=== PATIENT | male | born 1950 | race Caucasian/White ===

== ENCOUNTER 2021-09-12 10:07 | Emergency (ER) | payer OTHER ==
[~2021-09-12] VITALS: Ht 182.9 cm; Wt 87.1 kg
--- NOTE | 2021-09-12 10:10 | NUR ---
[id number] FOUND BY NIECE ON FLOOR. DENIES ANY PAIN, BRUISING ON LT ARM PT STS ON FLOOR SINCE 8P LAST NIGHT, WEAK TO GET UP. SKIN PALE. BG 133. ATTCHED TO MONITOR. VITALS ARE WITHIN NORMAL LIMITS. AWAITED MD STEPHENSON.
[2021-09-12] MEDS ORDERED: IV NS 0.9% 1,000 ML BAG IV ONE (10:30)
--- NOTE | 2021-09-12 10:47 | NUR ---
COVID TEST COLLECTED AND SENT
[2021-09-12] MEDS ORDERED: METF-440 PO (11:05)
[2021-09-12] MEDS ORDERED: LISI2.5T2 PO (11:05)
--- NOTE | 2021-09-12 11:05 | NUR ---
[employer] AT BEDSIDE FOR XRAY
[2021-09-12 11:24] LABS: BASOPHILS % (AUTO) 0.3 % (0.0-2.0); HEMATOCRIT 39 % (39-51); HEMOGLOBIN 12.9 g/dL (13.5-17.5); LYMPHOCYTES # (AUTO) 0.5 K/uL (0.8-4.8); LYMPHOCYTES % (AUTO) 6.9 % (20.0-44.0); MEAN CORPUSCULAR HGB CONC 33 g/dl (31.0-36.0); MEAN CORPUSCULAR VOLUME 86 fL (80-96); MONOCYTES # (AUTO) 1.4 K/uL (0.1-1.30); MONOCYTES % (AUTO) 20.4 % (2.0-12.0); NEUTROPHILS # (AUTO) 4.9 K/uL (1.8-8.9); NEUTROPHILS % (AUTO) 72.4 % (43.0-81.0); PLATELET COUNT (AUTO) 176 K/uL (150-450); RED BLOOD CELL COUNT(AUTO) 4.53 MIL/uL (4.5-6.0); WHITE BLOOD COUNT (AUTO) 6.7 K/uL (4.3-11.0)
[2021-09-12 11:53] LABS: LYMPHOCYTES % (MANUAL) 6 % (16-48); MONOCYTES % (MANUAL) 10 % (0-11.0); NEUTROPHILS % (MANUAL) 84 (42-76)
--- NOTE | 2021-09-12 12:30 | NUR ---
MOVE SHEET SUBMITTED.
[2021-09-12 12:55] LABS: CALCIUM, SERUM 9.8 mg/dL (8.5-10.1); CARBON DIOXIDE 21 mmol/L (21-32); CHLORIDE 103 mmol/L (98-107); CREATININE 0.8 mg/dL (0.6-1.3); GLUCOSE 115 mg/dL (74-106); SODIUM SERUM 134 mmol/L (136-145); UREA NITROGEN, BLOOD 17 mg/dL (7-18)
[2021-09-12 12:59] LABS: ALANINE AMINOTRANSFERASE 74 U/L (12-78); ALBUMIN 2.2 g/dL (3.4-5.0); ALKALINE PHOSPHATASE 288 U/L (46-116); ASPARTATE AMINOTRANSFERASE 184 U/L (15-37); BILIRUBIN,DIRECT 1.8 mg/dL (0.0-0.2); BILIRUBIN,TOTAL 2.9 mg/dL (0.2-1.0); TOTAL PROTEIN, SERUM 5.4 g/dL (6.4-8.2)
--- NOTE | 2021-09-12 13:19 | NUR ---
SRIDEVI [phone] WILL CALL BACK AND INFORM WHERE THE PT WILL BE TRANSPORTED TO.
--- NOTE | 2021-09-12 15:34 | NUR ---
CALLED SRIDEVI [phone] WHEN HAVE NEW LABS.
--- NOTE | 2021-09-12 18:30 | NUR ---
SERVED [employer] HAD MILK AND GRAPES.
--- NOTE | 2021-09-13 00:05 | NUR ---
RADHA CONNORS CALLED. PATIENT WILL BE TRANSFERRING TO [facility] RM 201-B. REPORT TO BE GIVEN TO JORGE LUIS ALVAREZ . PT WILL BE ADMITTED UNDER DR. CHAMPAGNE. TRANSPORTATION ETA (30 MINS) *[facility]
--- NOTE | 2021-09-13 00:19 | NUR ---
REPORT GIVEN TO KIM AT [facility].
[2021-09-13 00:25] VITALS: BP 112/61
--- NOTE | 2021-09-13 01:07 | NUR ---
[facility] IN STABLE CONDITION
== END 2021-09-13 01:09 | disposition short-term general hospital (02) ==
LOC: ER 10:10
DX: R53.1 Weakness (principal); S40.022A Contusion of left upper arm, initial encounter; W18.30XA Fall on same level, unspecified, initial encounter; Y92.89 Other specified places as the place of occurrence of the external cause; I10 Essential (primary) hypertension; E11.9 Type 2 diabetes mellitus without complications; Z79.84 Long term (current) use of oral hypoglycemic drugs; R74.01 Elevation of levels of liver transaminase levels; Z20.822 Contact with and (suspected) exposure to COVID-19; R17 Unspecified jaundice; R79.89 Other specified abnormal findings of blood chemistry
CPT/HCPCS: 36415; 71045; 80048; 80076; 82550; 82553; 82962; 84484 ×3; 85007; 85025; 85730; 86850; 87426; 93005; 96360; 99285; C9803 ×2; J7030; U0003